=== PATIENT | female | born 1935 | race Caucasian/White ===

== ENCOUNTER 2019-06-15 11:14 | Emergency (ER) | payer MEDICARE ==
[~2019-06-15] VITALS: Ht 177.8 cm; Wt 109.1 kg
[~2019-06-15 11:14] MED LIST: HYDR25TA4 PO; METO-137 PO
[2019-06-15] MEDS ORDERED: HYDROcodone/acetaminophen 10/325mg tab PO ONE (12:50)
[2019-06-15] MEDS ORDERED: carVEDilol 12.5mg tablet PO SCH (13:00)
[2019-06-15] MEDS ORDERED: TRAM50TA2 PO (13:38)
[2019-06-15 14:18] VITALS: BP 190/100
== END 2019-06-15 14:14 | disposition home or self-care (01) ==
LOC: ER 11:14
DX: M25.561 Pain in right knee (principal); I10 Essential (primary) hypertension; Z98.890 Other specified postprocedural states; Z88.2 Allergy status to sulfonamides; Z79.899 Other long term (current) drug therapy; W01.0XXA Fall on same level from slipping, tripping and stumbling without subsequent striking against object, initial encounter; Y93.89 Activity, other specified; Y92.89 Other specified places as the place of occurrence of the external cause; Y99.8 Other external cause status
CPT/HCPCS: 73560; 99283; 99284

== ENCOUNTER 2019-12-18 22:08 | Emergency (ER) | payer MEDICARE ==
[~2019-12-18] VITALS: Ht 177.8 cm; Wt 108.0 kg
--- NOTE | 2019-12-18 22:23 | NUR ---
[facility]#[phone] CELL# [phone] PLEASE CONTACT WITH ANY NEW INFORMATION OR ANY QUESTIONS
[2019-12-18] MEDS ORDERED: normal saline 1000ML IV soln IVB ONE (23:40)
[2019-12-18] MEDS ORDERED: morphine 4 MG/ML inj SYRINge IV ONE (23:40)
[2019-12-18] MEDS ORDERED: cyclobenzaprine 10mg tablet PO ONE (23:40)
[2019-12-18 23:56] LABS: ALANINE AMINOTRANSFERASE 39 U/L (12-78); ALBUMIN 3.5 G/DL (3.4-5.0); ALBUMIN/GLOBULIN RATIO 0.9 (1.1-1.5); ALKALINE PHOSPHATASE 101 IU/L (46-116); ANION GAP 10 (8-16); ASPARTATE AMINO TRANSFERASE 26 U/L (10-37); BILIRUBIN,TOTAL 1.3 MG/DL (0.1-1.0); BLOOD UREA NITROGEN 18 MG/DL (7-18); BUN/CREATININE RATIO 17.3 (6.6-38.0); CALCIUM 8.8 MG/DL (8.5-10.1); CHLORIDE 102 MMOL/L (99-107); CREATININE 1.04 MG/DL (0.40-0.90); POTASSIUM 4.1 MMOL/L (3.5-5.1); SODIUM 136 MMOL/L (135-145); TOTAL CARBON DIOXIDE 23.6 MMOL/L (24-32); TOTAL PROTEIN 7.2 G/DL (6.4-8.2); eGFR 50 ML/MIN
[2019-12-18 23:58] LABS: GLUCOSE 121 MG/DL (70-104)
[2019-12-19] LABS: TROPONIN I < 0.04 NG/ML (0.0-0.05)
[2019-12-19 00:26] LABS: BASOPHILS % (AUTO) 0.4 % (0-1); EOSINOPHILS # (AUTO) 0.1 X10'3 (0-0.9); EOSINOPHILS % (AUTO) 1.4 % (0-6); HEMATOCRIT 47.5 % (35.0-45.0); HEMOGLOBIN 16.1 g/dl (12.0-16.0); LYMPHOCYTES # (AUTO) 0.9 X10'3 (1.1-4.8); LYMPHOCYTES % (AUTO) 14.6 % (21-51); MEAN CORPUSCULAR HEMOGLOBIN 30.6 PG (27.0-31.0); MEAN CORPUSCULAR VOLUME 90.2 FL (78-98); MEAN PLATELET VOLUME 7.3 FL (7.4-10.4); MONOCYTES # (AUTO) 0.5 X10'3 (0-0.9); MONOCYTES % (AUTO) 7.9 % (2-12); NEUTROPHILS # (AUTO) 4.7 X10'3 (1.8-7.7); NEUTROPHILS % (AUTO) 75.7 % (42-75); PLATELET COUNT 142 X10'3 (140-440); RED BLOOD COUNT 5.26 X10'6 (4.20-5.60); RED CELL DISTRIBUTION WIDTH 14.2 % (11.5-14.5); WHITE BLOOD COUNT 6.2 X10'3 (4.5-11.0)
[2019-12-19] MEDS ORDERED: CELE-193 PO (01:50)
[2019-12-19] MEDS ORDERED: ACET-3068 PO (01:50)
[2019-12-19] MEDS ORDERED: CYCL-1 PO (01:50)
[2019-12-19 02:10] VITALS: BP 194/94
== END 2019-12-19 02:11 | disposition home or self-care (01) ==
LOC: ER 22:09
DX: S29.012A Strain of muscle and tendon of back wall of thorax, initial encounter (principal); T14.8XXA Other injury of unspecified body region, initial encounter; M54.89 Other dorsalgia; I10 Essential (primary) hypertension; Z98.890 Other specified postprocedural states; Z88.2 Allergy status to sulfonamides; Z79.899 Other long term (current) drug therapy; X58.XXXA Exposure to other specified factors, initial encounter; Y93.89 Activity, other specified; Y92.89 Other specified places as the place of occurrence of the external cause; Y99.8 Other external cause status
CPT/HCPCS: 36415; 71046; 76700; 80053; 84484; 85025; 93005; 96374; 99285; J2270; J7030